=== PATIENT | female | born 1960 | race Caucasian/White ===

== ENCOUNTER → 2017-05-07 08:52 | Outpatient (CLI) | payer BC, SELFPAY ==
--- NOTE | 2017-05-07 08:55 | RAD_ITS ---
STUDY: X-RAY - LEFT KNEE REASON FOR EXAM: Female, 56 years old. Stiffness. TECHNIQUE: 4 view(s) of the knee. COMPARISON: None. FINDINGS: Normal visualized distal femur. Normal visualized proximal tibia and fibula. Normal proximal tibiofibular articulation. The patient is status post left total knee replacement. There is good alignment. Small joint effusion. RAD/Knee 4 or More Views IMPRESSION: Status post total knee replacement. There is good alignment. Small joint effusion. Electronically Signed: Gomez Gallagher MD at 13:06 EST Tel [phone], Service support ,
== END ==
PROVIDERS: Family Provider Family Medicine; PCP Family Medicine; Visit Provider Orthopaedic Surgery
DX: M25.662 Stiffness of left knee, not elsewhere classified (principal)
CPT/HCPCS: 73564

== ENCOUNTER 2017-09-07 23:27 | Emergency (ER) | payer BC, SELFPAY ==
--- NOTE | 2017-09-07 23:27 | DT_ITS ---
This patient was seen during an EMR downtime August 31, 2017 - September 07, 2017. This patient may have a combination of paper and electronic documentation or all paper documentation. All documentation is viewable within the e-chart portion of [employer] for each patient visit.
[2017-09-07 23:28] VITALS: BP 123/70; PULSE 75; RESP 16; TEMP 36.7; O2SAT 98; BMI 38.8
--- NOTE | 2017-09-08 00:02 | ED.VISSUMM ---
- ER Visit Summary Date of Service: 09/08/17 Chief Complaint: Right leg swelling History of Present Illness: The patient is a 56 F who states she was sitting watching TV tonight and noted to her right leg was swollen 1-1/2 times the size of her left leg. She denies any pain. Her father had a blood clot so she was concerned. She has had no recent travel. There is no clotting disorder in the family. She denies chest pain or shortness of breath. Physical Examination: Vital signs are unremarkable. Patient sitting upright in bed no acute distress. Heart is regular rate and rhythm. Lung sounds are clear. Abdomen is soft nontender. Lower extremity examination reveals minimal edema in the right leg both thigh and lower leg. She has no tenderness. There is no erythema. She has strong distal pulses. There is a well-healed surgical scar of the left anterior knee. Test Results: We do not have ultrasound available this time of night. Patient will be written for a outpatient order for an ultrasound tomorrow. I did measure circumference of her legs. Right distal thigh is 17-3/4 inches and left distal thigh is 18-3/4 inches. Right calf is 16-3/4 inches and left calf is 16-1/4 inches. Emergency Department Course and Treatment: Patient will be given a single dose of Lovenox tonight. She will return tomorrow for outpatient ultrasound. Treatment Plan: [] Disposition: Discharge Impression: Right leg edema This note was generated with [employer] dictation software. It may contain incorrect words, spelling, and punctuation that were not noted in review of the chart prior to signing ED Disposition - Plan for ED Patient: Chief Complaint: Lower Extremity Injury Referrals: Sarah Bar DO [Primary Care Provider] -
--- NOTE | 2017-09-08 00:06 | ED.DEP ---
ED Disposition - Plan for ED Patient: Disposition: Home or Assisted Living Chief Complaint: Lower Extremity Injury Instructions: ED Leg Swelling Unilateral Referrals: Sarah Bar DO [Primary Care Provider] - Additional Instructions: return tomorrow for outpatient ultrasound of the leg as discussed
[2017-09-08] MEDS: Enoxaparin 100 MG/ML Syringe 90 MG SC (00:29)
== END 2017-09-08 00:30 | disposition home or self-care (01) ==
PROVIDERS: Emergency Provider Emergency Medicine; Family Provider Family Medicine; PCP Family Medicine
DX: R60.0 Localized edema (principal); Z83.2 Family history of diseases of the blood and blood-forming organs and certain disorders involving the immune mechanism; Z79.899 Other long term (current) drug therapy
CPT/HCPCS: 96372; 99283

== ENCOUNTER → 2017-09-08 10:06 | Outpatient (CLI) | payer BC, SELFPAY ==
--- NOTE | 2017-09-08 10:08 | VDLE_ITS ---
Reason For Study: LEG SWELLING RIGHT LEFT GSV is normal. CFV is compressible, spontaneous, phasic, CFV is compressible, spontaneous, phasic, competent, and demonstrates normal competent and demonstrates normal augmentation. augmentation. FV is compressible, spontaneous, phasic, competent and demonstrates normal augmentation. POP V is compressible, spontaneous, phasic, competent and demonstrates normal augmentation. T/P Trunk is compressible. PTV is compressible. RT PerV is compressible. Procedure Exam performed in department. A preliminary report was called and/or faxed to Dr. Bar. Interpretation Summary Deep veins of the right lower extremity are patent and compressible segmentally. There is no evidence of right lower extremity deep vein thrombosis. Valvular competence appears intact within the proximal deep venous system on the right . The right greater saphenous vein appears patent and compressible segmentally. Ordering Physician: Beth Rea Referring Physician: Sarah Bar Performed By: Jennifer Song RVT
== END ==
PROVIDERS: Family Provider Family Medicine; PCP Family Medicine; Visit Provider Emergency Medicine
DX: R60.0 Localized edema (principal)
CPT/HCPCS: 93971

== ENCOUNTER → 2017-09-14 16:23 | Outpatient (CLI) | payer BC, SELFPAY ==
--- NOTE | 2017-09-14 16:35 | US_ITS ---
STUDY: ULTRASOUND OF THE PELVIS CLINICAL: Female, 56 years old. Edema, mass TECHNIQUE: Transvaginal COMPARISON: None. FINDINGS: Normal uterine size measuring 6.8 x 3.4 x 1.8 cm in maximal craniocaudal dimension. There are no myometrial masses. Normal endometrial thickness measuring 2 mm. It is hyperechoic. There are no endometrial masses, and there is no fluid in the endometrial cavity. Normal uterine cervix. Normal right ovary, measuring 1.3 x 1.6 x 0.8 cm. There are multiple follicles without a dominant cyst. Normal left ovary, measuring 1.7 x 1.3 x 1.0 cm. There are multiple follicles without a dominant cyst. 2 mm hyperechoic focus possibly a calcification. There is no free fluid in the pelvis. US/Pelvic (Non ) IMPRESSION: No acute pathology in the pelvis. Electronically Signed: Sukhjinder Murray DO at 23:13 EDT Tel [phone], Service support ,
--- NOTE | 2017-09-14 16:51 | US_ITS ---
STUDY: ULTRASOUND OF THE PELVIS CLINICAL: Female, 56 years old. Edema, mass TECHNIQUE: Transvaginal COMPARISON: None. FINDINGS: Normal uterine size measuring 6.8 x 3.4 x 1.8 cm in maximal craniocaudal dimension. There are no myometrial masses. Normal endometrial thickness measuring 2 mm. It is hyperechoic. There are no endometrial masses, and there is no fluid in the endometrial cavity. Normal uterine cervix. Normal right ovary, measuring 1.3 x 1.6 x 0.8 cm. There are multiple follicles without a dominant cyst. Normal left ovary, measuring 1.7 x 1.3 x 1.0 cm. There are multiple follicles without a dominant cyst. 2 mm hyperechoic focus possibly a calcification. There is no free fluid in the pelvis. US/Transvaginal Non- IMPRESSION: No acute pathology in the pelvis. Electronically Signed: Sukhjinder Murray DO at 23:13 EDT Tel [phone], Service support ,
== END ==
PROVIDERS: Family Provider Family Medicine; PCP Family Medicine; Visit Provider Family Medicine
DX: R60.0 Localized edema (principal)
CPT/HCPCS: 76830; 76856; 93976

== ENCOUNTER → 2017-09-28 08:04 | Outpatient (CLI) | payer BC, SELFPAY ==
--- NOTE | 2017-09-28 08:06 | RAD_ITS ---
STUDY: X-RAY - LEFT KNEE REASON FOR EXAM: Female, 56 years old. Pain, injury TECHNIQUE: 4 view(s) of the knee. COMPARISON: Previous study of May 07, 2017 FINDINGS: Status post total left knee replacement changes are seen. Implants appear in good position. There is no evidence of implant loosening or new associated fracture or dislocation. There is a small suprapatellar effusion. RAD/Knee 4 or More Views IMPRESSION: Status post total left knee replacement changes noted with implants appearing in good position. There is no evidence of implant loosening or new associated fracture or dislocation. There is a small suprapatellar effusion. Findings are similar to the previous study. Electronically Signed: Bradley Alfaro MD at 16:50 EDT , Service support ,
== END ==
PROVIDERS: Family Provider Family Medicine; PCP Family Medicine; Visit Provider Orthopaedic Surgery
DX: M25.562 Pain in left knee (principal)
CPT/HCPCS: 73564

== ENCOUNTER → 2017-10-22 08:39 | Outpatient (CLI) | payer BC, SELFPAY ==
[2017-10-22 10:25] LABS: Absolute Neutrophil Count 3.6 X10^3/uL (2.0-7.7); Basophil# 0.02 X10^3/uL; Basophil% 0.3 % (0-1); Eosinophil# 0.38 X10^3/uL; Eosinophils% 6.4 % (0-5); Hematocrit 34.8 % (37-47); Hemoglobin 12.2 g/dl (12.0-15.0); Lymphocyte % 25.3 % (19-41); Mean Corp Hgb Conc 35.1 g/gl (32-36); Mean Corpuscular Hgb 30.7 pg (27.0-32.0); Mean Corpuscular Volume 87.4 fL (81-99); Mean Platelet Vol. 10.2 fl (6.2-12.0); Monocyte# 0.46 X10^3/uL; Monocyte% 7.7 % (0-10); Neutrophil # 3.57 X10^3/uL (2.7-7.7); Neutrophil % 60.1 % (47-70); Platelet Count 266 K/mm3 (150-450); RBC Distribution Width CV 13.7 % (11.6-14.6); RBC Distribution Width SD 44.1 fl (35.1-43.9); Red Blood Count 3.98 M/mm3 (4.2-5.4); White Blood Count 5.9 K/mm3 (4.4-11.0)
[2017-10-22 10:26] LABS: POSITIVE COUNT NO; POSITIVE DIFFERENTIAL NO; POSITIVE MORPHOLOGY NO
[2017-10-22 10:52] LABS: ALB/GLOB Ratio 1.1 RATIO (0.9-2.4); AST(SGOT) 26 U/L (15-37); Alanine Aminotransfer ALT/SGPT 34 U/L (13-56); Albumin, Serum 3.7 g/dL (3.2-5.0); Alkaline Phosphatase 67 U/L (45-117); Anion Gap 9 (5-15); BUN 15 mg/dL (7-18); BUN/Creat Ratio 15.3 RATIO (10-20); Calcium,Total 8.8 mg/dL (8.5-10.1); Chloride 104 mmol/L (98-107); Cholesterol 157 mg/dL (200); Creatinine, Serum 0.98 mg/dL (0.55-1.02); EST Glomerular Filtration Rate 62 mL/min (>60); Est Glom Filt Rate - Afr Amer 76 mL/min (>60); Globulin 3.4 g/dL (2.2-4.2); Glucose 96 mg/dL (74-106); High Density Lipoprotein 59 mg/dL; Potassium 3.6 mmol/L (3.5-5.1); Protein, Total 7.1 g/dL (6.4-8.2); Sodium Level 140 mmol/L (136-145); Triglycerides 149 mg/dL; Very Low Density Lipoprotein 30 mg/dL (5-40)
== END ==
PROVIDERS: Family Provider Family Medicine; PCP Family Medicine; Visit Provider Family Medicine
DX: I10 Essential (primary) hypertension (principal); E78.5 Hyperlipidemia, unspecified
CPT/HCPCS: 36415; 80053; 80061; 85025

== ENCOUNTER → 2017-11-12 12:38 | Outpatient (CLI) | payer BC, SELFPAY | PROVIDERS: Family Provider Family Medicine; PCP Family Medicine; Visit Provider Family Medicine | DX: Z12.31 Encounter for screening mammogram for malignant neoplasm of breast (principal) | CPT/HCPCS: 77063; 77067 ==

== ENCOUNTER → 2017-12-29 11:33 | Outpatient (CLI) | payer BC, SELFPAY ==
--- NOTE | 2017-12-29 11:36 | RAD_ITS ---
STUDY: X-RAY CHEST REASON FOR EXAM: Female, 57 years old. Cough. TECHNIQUE: PA and lateral views of the chest. COMPARISON: None. FINDINGS: The lungs are clear and expanded. There is no demonstrated pleural abnormality. Normal size heart. Normal mediastinum and trace. Normal visualized pulmonary arteries. Normal visualized aortic arch and descending thoracic aorta. There are mild degenerative changes of the visualized thoracic spine. Normal visualized ribs, clavicles, and shoulders. There is no demonstrated abnormality of the visualized soft tissue structures of the upper abdomen. RAD/Chest PA and Lateral IMPRESSION: No acute cardiopulmonary disease. Electronically Signed: Montana Veras DO at 22:00 EDT Tel [phone], Service support ,
[2017-12-29 14:05] LABS: Absolute Lymphocyte Count 1.37 X10^3/ul (0.83-4.51); Absolute Neutrophil Count 3.4 X10^3/uL (2.0-7.7); Basophil# 0.01 X10^3/uL; Basophil% 0.2 % (0-1); Eosinophil# 0.42 X10^3/uL; Eosinophils% 7.4 % (0-5); Hematocrit 33.5 % (37-47); Hemoglobin 11.7 g/dl (12.0-15.0); Lymphocyte # 1.37 X10^3/ul (4.0); Mean Corp Hgb Conc 34.9 g/gl (32-36); Mean Corpuscular Hgb 30.4 pg (27.0-32.0); Mean Platelet Vol. 10.5 fl (6.2-12.0); Monocyte# 0.53 X10^3/uL; Monocyte% 9.3 % (0-10); Neutrophil # 3.37 X10^3/uL (2.7-7.7); Neutrophil % 58.9 % (47-70); Platelet Count 226 K/mm3 (150-450); RBC Distribution Width CV 14.3 % (11.6-14.6); Red Blood Count 3.85 M/mm3 (4.2-5.4); White Blood Count 5.7 K/mm3 (4.4-11.0)
[2017-12-29 14:07] LABS: POSITIVE COUNT NO; POSITIVE DIFFERENTIAL NO; POSITIVE MORPHOLOGY NO
== END ==
PROVIDERS: Family Provider Family Medicine; PCP Family Medicine; Referring Provider Family Medicine; Visit Provider Family Medicine
DX: R05 Cough (principal); R06.2 Wheezing; J30.9 Allergic rhinitis, unspecified
CPT/HCPCS: 36415; 71046; 85025; 87070; 87205

== ENCOUNTER → 2018-08-02 15:26 | Outpatient (CLI) | payer BC, SELFPAY ==
[2018-08-05 16:00] LABS: Rubeola IgG Ab > 300.0 AU/mL (Immune >29.9)
== END ==
PROVIDERS: Family Provider Family Medicine; PCP Family Medicine; Visit Provider Family Medicine
DX: J06.9 Acute upper respiratory infection, unspecified (principal); Z91.89 Other specified personal risk factors, not elsewhere classified
CPT/HCPCS: 36415; 86765; 87633

== ENCOUNTER → 2018-11-01 09:08 | Outpatient (CLI) | payer BC, SELFPAY ==
[2018-11-01 12:25] LABS: Absolute Lymphocyte Count 1.58 X10^3/uL (0.83-4.51); Basophil# 0.03 X10^3/uL; Basophil% 0.5 % (0-1); Eosinophil# 0.43 X10^3/uL; Eosinophils% 6.5 % (0-5); Hemoglobin 11.4 g/dL (12.0-15.0); Lymphocyte # 1.58 X10^3/ul (4.0); Mean Corp Hgb Conc 35.6 g/dL (32-36); Mean Corpuscular Hgb 31.8 pg (27.0-32.0); Mean Corpuscular Volume 89.1 fL (81-99); Mean Platelet Vol. 10.4 fl (6.2-12.0); Monocyte% 7.6 % (0-10); NRBC Flagged by Analyzer 0 % (0-5); Neutrophil # 4.03 X10^3/uL (2.7-7.7); Neutrophil % 61.1 % (47-70); Platelet Count 245 K/mm3 (150-450); RBC Distribution Width CV 12.9 % (11.6-14.6); RBC Distribution Width SD 42.5 fl (35.1-43.9); Red Blood Count 3.59 M/mm3 (4.2-5.4); White Blood Count 6.6 K/mm3 (4.4-11.0)
[2018-11-01 12:45] LABS: AST(SGOT) 34 U/L (15-37); Alanine Aminotransfer ALT/SGPT 43 U/L (13-56); Albumin, Serum 3.6 g/dL (3.2-5.0); Alkaline Phosphatase 78 U/L (45-117); Anion Gap 8 (5-15); BUN 28 mg/dL (7-18); BUN/Creat Ratio 20.6 RATIO (10-20); Chloride 104 mmol/L (98-107); Cholesterol 161 mg/dL (200); Creatinine, Serum 1.36 mg/dL (0.55-1.02); EST Glomerular Filtration Rate 43 mL/min (>60); Est Glom Filt Rate - Afr Amer 52 mL/min (>60); Globulin 3.5 g/dL (2.2-4.2); Glucose 97 mg/dL (74-106); High Density Lipoprotein 58 mg/dL; Potassium 3.6 mmol/L (3.5-5.1); Protein, Total 7.1 g/dL (6.4-8.2); Sodium Level 137 mmol/L (136-145); Triglycerides 153 mg/dL; Very Low Density Lipoprotein 31 mg/dL (5-40)
== END ==
PROVIDERS: Family Provider Family Medicine; PCP Family Medicine; Visit Provider Family Medicine
DX: I10 Essential (primary) hypertension (principal); E78.5 Hyperlipidemia, unspecified; D64.9 Anemia, unspecified
CPT/HCPCS: 36415; 80053; 80061; 85025

== ENCOUNTER → 2018-11-01 10:07 | Outpatient (CLI) | payer BC, SELFPAY ==
[2018-11-01 10:06] VITALS: BMI 38.8
--- NOTE | 2018-11-01 10:08 | RAD_ITS ---
STUDY: X-RAY - LEFT KNEE REASON FOR EXAM: Female, 57 years old. Post operative check TECHNIQUE: 4 view(s) of the knee. COMPARISON: None. FINDINGS: Normal visualized distal femur. Normal visualized proximal tibia and fibula. Normal proximal tibiofibular articulation. Normal medial femorotibial compartment. Normal lateral femorotibial compartment. Normal patellofemoral articulation. Knee replacement hardware is intact. Soft tissues are within normal limits. RAD/Knee 4 or More Views IMPRESSION: There are NO fractures or malalignments. Knee replacement hardware is intact. Electronically Signed: Brandan Song MD at 16:51 EDT , Service support ,
== END ==
PROVIDERS: Family Provider Family Medicine; PCP Family Medicine; Referring Provider Orthopaedic Surgery; Visit Provider Orthopaedic Surgery
DX: Z96.659 Presence of unspecified artificial knee joint (principal)
CPT/HCPCS: 73564

== ENCOUNTER → 2018-11-30 16:13 | Outpatient (CLI) | payer BC, SELFPAY ==
[2018-11-01 10:06] VITALS: BMI 38.8
--- NOTE | 2018-11-30 16:18 | BI_ITS ---
MAMMOGRAPHY - BILATERAL SCREENING REASON FOR EXAM: Female, 58 years old. Routine annual screening examination. PERTINENT HISTORY: Non-contributory. Remote right excisional breast biopsy. TECHNIQUE: Digital bilateral breast stuart (3D mammographic acquisition) in the CC and MLO projections. 2-D mediolateral oblique (MLO) and craniocaudad (CC) views of both breasts were obtained. CAD: Full Field Digital Mammography with Computer Added Detection was performed. COMPARISON: Comparison is made with prior study dated November 12, 2017. FINDINGS: Breast Composition: The breasts are almost entirely fatty. There are no dominant masses or suspicious calcifications. Stable benign-appearing small bilateral axillary lymph nodes. Prominent venous markings in both breasts. No other significant abnormalities are identified. There has been no significant change since the prior study. BI/SCREEN MAMM (CAD) W/STUART BILAT IMPRESSION: Stable bilateral screening mammogram. Yearly follow-up mammogram recommended. (A) ASSESSMENT CATEGORY: BIRADS Category 2: Benign. A letter regarding these results will be sent to the patient by the facility within 30 days. Approximately 10% of breast cancers are not detected by mammography. A normal mammogram should not delay biopsy of a clinically suspicious abnormality. [id number] Electronically Signed: Gomez Gallagher, at 9:27 EDT , Service support ,
== END ==
PROVIDERS: Family Provider Family Medicine; PCP Family Medicine; Referring Provider Family Medicine; Visit Provider Family Medicine
DX: Z12.31 Encounter for screening mammogram for malignant neoplasm of breast (principal)
CPT/HCPCS: 77063; 77067

== ENCOUNTER → 2018-12-30 13:28 | Outpatient (CLI) | payer BC, SELFPAY ==
[2018-11-01 10:06] VITALS: BMI 38.8
[2018-12-30 18:46] LABS: Anion Gap 6 (5-15); BUN 14 mg/dL (7-18); BUN/Creat Ratio 11.3 RATIO (10-20); Calcium,Total 8.9 mg/dL (8.5-10.1); Chloride 102 mmol/L (98-107); Creatinine, Serum 1.24 mg/dL (0.55-1.02); EST Glomerular Filtration Rate 48 mL/min (>60); Est Glom Filt Rate - Afr Amer 58 mL/min (>60); Glucose 81 mg/dL (74-106); Potassium 3.5 mmol/L (3.5-5.1); Sodium Level 135 mmol/L (136-145)
== END ==
LOC: LAB.FUTURE 07-04 00:12 → BFHLAB 08-24 10:46
PROVIDERS: Family Provider Family Medicine; PCP Family Medicine; Visit Provider Family Medicine
DX: R94.4 Abnormal results of kidney function studies (principal)
CPT/HCPCS: 36415; 80048

== ENCOUNTER → 2019-02-01 08:33 | Outpatient (CLI) | payer BC, SELFPAY ==
[2018-11-01 10:06] VITALS: BMI 38.8
[2019-02-01 12:34] LABS: Anion Gap 8 (5-15); BUN 15 mg/dL (7-18); BUN/Creat Ratio 14.9 RATIO (10-20); Calcium,Total 9.1 mg/dL (8.5-10.1); Chloride 103 mmol/L (98-107); Creatinine, Serum 1.01 mg/dL (0.55-1.02); EST Glomerular Filtration Rate 60 mL/min (>60); Est Glom Filt Rate - Afr Amer 73 mL/min (>60); Glucose 102 mg/dL (74-106); Potassium 3.4 mmol/L (3.5-5.1); Sodium Level 136 mmol/L (136-145)
[2019-02-02 08:18] LABS: Mucous, Urine 0 SEEN /hpf (<or=2+); Red Blood Cells-Urine 0 SEEN /hpf (0-5)
[2019-02-02 12:30] LABS: Color, Urine Yellow (Yellow); Glucose, Dipstick Normal (Normal); Ketone-Dipstick Negative (Negative); Leukocyte Esterase-Dipstick 25 /ul (Negative); Nitrite-Dipstick Negative (Negative); Occult Blood-Urine Negative /ul (Negative); Protein-Dipstick Negative (Negative); Specific Gravity, Urine 1.015 (1.002-1.030); Urine Bilirubin Dipstick Negative (Negative); Urine Clarity Sl. Cloudy (Clear); Urine Urobilinogen Normal (Normal)
[2019-02-02 12:34] LABS: Bacteria RARE /hpf (None Seen); Squamous Epithelial Cells - UA 0-5 SEEN /hpf (5-10); White Blood Cells 0-5 SEEN /hpf (0-5)
== END ==
LOC: LAB.FUTURE 08-04 00:15 → BFHLAB 08-24 10:45
PROVIDERS: Family Provider Family Medicine; PCP Family Medicine; Visit Provider Family Medicine
DX: N28.9 Disorder of kidney and ureter, unspecified (principal)
CPT/HCPCS: 36415; 80048; 81001

== ENCOUNTER → 2019-04-20 13:37 | Outpatient (CLI) | payer BC, SELFPAY ==
[2018-11-01 10:06] VITALS: BMI 38.8
--- NOTE | 2019-04-20 13:41 | RAD_ITS ---
STUDY: X-RAY - LUMBAR SPINE REASON FOR EXAM: Female, 58 years old. Lower back pain radiating into the left hip. TECHNIQUE: 5 view(s) of the lumbar spine were obtained. COMPARISON: None FINDINGS: Normal lumbar lordosis. There is no substantial scoliosis. There is a normal alignment of the vertebrae. There is multilevel endplate spondylosis of the lumbar vertebrae. There is multi-level degenerative disc disease with multi-level disc space narrowing. This is most marked at L1-2 and L2-3. There is no evidence of acute fracture or loss of vertebral axial height. There is no demonstrated spondylolysis of the pars interarticulares. Cholecystectomy clips in the right upper quadrant. RAD/L/S Spine Min 4 Views IMPRESSION: Degenerative changes of the spine, as detailed above. Electronically Signed: Montana Veras DO at 21:30 EST Tel [phone], Service support ,
== END ==
PROVIDERS: PCP Family Medicine; Referring Provider Family Medicine; Visit Provider Family Medicine
DX: M54.5 Low back pain (principal)
CPT/HCPCS: 72110

== ENCOUNTER → 2019-04-29 08:49 | Outpatient (CLI) | payer BC, SELFPAY ==
[2018-11-01 10:06] VITALS: BMI 38.8
[2019-04-29 13:21] LABS: Anion Gap 8 (5-15); BUN 14 mg/dL (7-18); BUN/Creat Ratio 13.7 RATIO (10-20); Calcium,Total 9.3 mg/dL (8.5-10.1); Chloride 102 mmol/L (98-107); Creatinine, Serum 1.02 mg/dL (0.55-1.02); EST Glomerular Filtration Rate 60 mL/min (>60); Est Glom Filt Rate - Afr Amer 72 mL/min (>60); Glucose 89 mg/dL (74-106); Potassium 3.3 mmol/L (3.5-5.1); Sodium Level 136 mmol/L (136-145)
== END ==
PROVIDERS: Family Provider Family Medicine; PCP Family Medicine; Visit Provider Family Medicine
DX: I10 Essential (primary) hypertension (principal); N28.9 Disorder of kidney and ureter, unspecified
CPT/HCPCS: 36415; 80048

== ENCOUNTER → 2019-08-26 12:53 | Outpatient (CLI) | payer BC, SELFPAY ==
[2018-11-01 10:06] VITALS: BMI 38.8
[2019-08-26 15:13] LABS: Absolute Lymphocyte Count 1.87 X10^3/uL (0.83-4.51); Basophil# 0.04 X10^3/uL; Basophil% 0.6 % (0-1); Eosinophils% 5.8 % (0-5); Hematocrit 35.8 % (37-47); Hemoglobin 12.6 g/dL (12.0-15.0); Lymphocyte # 1.87 X10^3/ul (4.0); Lymphocyte % 27.3 % (19-41); Mean Corp Hgb Conc 35.2 g/dL (32-36); Mean Corpuscular Hgb 31.1 pg (27.0-32.0); Mean Corpuscular Volume 88.4 fL (81-99); Mean Platelet Vol. 10.2 fl (6.2-12.0); Monocyte# 0.54 X10^3/uL; Monocyte% 7.9 % (0-10); NRBC Flagged by Analyzer 0 % (0-5); Neutrophil # 3.98 X10^3/uL (2.7-7.7); Neutrophil % 58.3 % (47-70); Platelet Count 334 K/mm3 (150-450); RBC Distribution Width CV 13.7 % (11.6-14.6); RBC Distribution Width SD 44.4 fl (35.1-43.9); Red Blood Count 4.05 M/mm3 (4.2-5.4); White Blood Count 6.8 K/mm3 (4.4-11.0)
[2019-08-26 15:29] LABS: ALB/GLOB Ratio 1.1 RATIO (0.9-2.4); AST(SGOT) 26 U/L (15-37); Alanine Aminotransfer ALT/SGPT 34 U/L (13-56); Albumin, Serum 3.8 g/dL (3.2-5.0); Alkaline Phosphatase 57 U/L (45-117); Anion Gap 9 (5-15); BUN 18 mg/dL (7-18); BUN/Creat Ratio 16.4 RATIO (10-20); Calcium,Total 9.3 mg/dL (8.5-10.1); Chloride 102 mmol/L (98-107); Cholesterol 162 mg/dL (200); EST Glomerular Filtration Rate 54 mL/min (>60); Est Glom Filt Rate - Afr Amer 66 mL/min (>60); Globulin 3.5 g/dL (2.2-4.2); Glucose 91 mg/dL (74-106); High Density Lipoprotein 64 mg/dL; Potassium 3.6 mmol/L (3.5-5.1); Protein, Total 7.3 g/dL (6.4-8.2); Sodium Level 137 mmol/L (136-145); Triglycerides 157 mg/dL; Very Low Density Lipoprotein 31 mg/dL (5-40)
== END ==
PROVIDERS: PCP Family Medicine; Visit Provider Family Medicine
DX: E87.5 Hyperkalemia (principal); E87.6 Hypokalemia; Z51.81 Encounter for therapeutic drug level monitoring
CPT/HCPCS: 36415; 80053; 80061; 85025

== ENCOUNTER → 2019-12-09 14:56 | Outpatient (CLI) | payer BC, SELFPAY ==
[2018-11-01 10:06] VITALS: BMI 38.8
[2019-12-09 12:57] LABS: Absolute Lymphocyte Count 1.67 X10^3/uL (0.83-4.51); Absolute Neutrophil Count 3.9 X10^3/uL (2.0-7.7); Basophil# 0.03 X10^3/uL; Basophil% 0.5 % (0-1); Eosinophil# 0.41 X10^3/uL; Eosinophils% 6.3 % (0-5); Hematocrit 35.2 % (37-47); Hemoglobin 12.4 g/dL (12.0-15.0); Lymphocyte # 1.67 X10^3/ul (4.0); Lymphocyte % 25.6 % (19-41); Mean Corp Hgb Conc 35.2 g/dL (32-36); Mean Corpuscular Hgb 31.8 pg (27.0-32.0); Mean Corpuscular Volume 90.3 fL (81-99); Mean Platelet Vol. 10.5 fl (6.2-12.0); Monocyte% 7.7 % (0-10); NRBC Flagged by Analyzer 0 % (0-5); Neutrophil % 59.7 % (47-70); Platelet Count 302 K/mm3 (150-450); RBC Distribution Width CV 13.3 % (11.6-14.6); White Blood Count 6.5 K/mm3 (4.4-11.0)
[2019-12-09 13:28] LABS: ALB/GLOB Ratio 1.1 RATIO (0.9-2.4); AST(SGOT) 20 U/L (15-37); Alanine Aminotransfer ALT/SGPT 31 U/L (13-56); Albumin, Serum 3.6 g/dL (3.2-5.0); Alkaline Phosphatase 61 U/L (45-117); Anion Gap 8 (5-15); BUN 16 mg/dL (7-18); Calcium,Total 8.7 mg/dL (8.5-10.1); Chloride 104 mmol/L (98-107); EST Glomerular Filtration Rate 61 mL/min (>60); Est Glom Filt Rate - Afr Amer 74 mL/min (>60); Globulin 3.2 g/dL (2.2-4.2); Glucose 97 mg/dL (74-106); Potassium 3.5 mmol/L (3.5-5.1); Protein, Total 6.8 g/dL (6.4-8.2); Sodium Level 139 mmol/L (136-145)
--- NOTE | 2019-12-09 15:02 | BI_ITS ---
MAMMOGRAPHY - BILATERAL SCREENING REASON FOR EXAM: Female, 59 years old. Routine annual screening examination. PERTINENT HISTORY: Non-contributory. Remote right excisional breast biopsy. TECHNIQUE: Digital bilateral breast stuart (3D mammographic acquisition) in the CC and MLO projections. 2-D mediolateral oblique (MLO) and craniocaudad (CC) views of both breasts were obtained. CAD: Full Field Digital Mammography with Computer Added Detection was performed. COMPARISON: Comparison is made with prior study dated 11/30/2018 and 11/12/2017. FINDINGS: Breast Composition: The breasts are almost entirely fatty. There are no dominant masses or suspicious calcifications. Stable benign appearing bilateral axillary lymph nodes. No other significant abnormalities are identified. There has been no significant change since the prior study. BI/SCREEN MAMM (CAD) W/STUART BILAT IMPRESSION: Stable bilateral screening mammogram. Yearly follow-up mammogram recommended. (A) ASSESSMENT CATEGORY: BIRADS Category 2: Benign. A letter regarding these results will be sent to the patient by the facility within 30 days. Approximately 10% of breast cancers are not detected by mammography. A normal mammogram should not delay biopsy of a clinically suspicious abnormality. [id number] Electronically Signed: Gomez Gallagher, at 9:46 EDT , Service support ,
== END ==
PROVIDERS: PCP Family Medicine; Referring Provider Family Medicine; Visit Provider Family Medicine
DX: Z12.31 Encounter for screening mammogram for malignant neoplasm of breast (principal); N18.9 Chronic kidney disease, unspecified; D64.9 Anemia, unspecified
CPT/HCPCS: 36415; 77063; 77067; 80053; 85025

== ENCOUNTER 2020-05-18 06:02 | Day surgery (SDC) | payer BC, SELFPAY ==
[2019-12-27 13:01] VITALS: BMI 38.8
[2020-05-18] VITALS (8 sets, daily range): BP systolic 94–114; BP diastolic 49–73; PULSE 71–81; RESP 16–18; TEMP 36.3–36.5; O2SAT 94–100; BMI 40.6
--- NOTE | 2020-05-18 06:07 | HP_ITS ---
I have re-examined the patient. There are no clinical changes since date of exam. Intake Intake Visit Reasons: LEFT WRIST Accompanied by: Self Is patient in pain?: Yes Pain scale (1-10): 5 Allergies adhesive tape Allergy (Verified 05/10/20 15:42) Rash latex Allergy (Verified 05/10/20 15:42) Rash Penicillins [PCN] Allergy (Verified 05/10/20 15:42) Other Sulfa (Sulfonamide Antibiotics) Allergy (Verified 05/10/20 15:42) Rash erythromycin base Adverse Reaction (Verified 05/10/20 15:42) Upset Stomach PLASTIC TAPE Allergy (Uncoded 05/10/20 15:42) Rash Medications Lisinopril/Hydrochlorothiazide [Zestoretic 20-25 mg Tablet] 1 ea PO DAILY 02/23/16 [History Confirmed 05/10/20] Pantoprazole Sodium [Protonix] 40 mg PO DAILY 02/23/16 [History Confirmed 05/10/20] Cholecalciferol (Vitamin D3) [Vitamin D3] 5,000 unit PO DAILY 08/22/16 [History Confirmed 05/10/20] Fluoxetine [Prozac] 60 mg PO DAILY 08/22/16 [History Confirmed 05/10/20] Cetirizine HCl [Zyrtec] 10 mg PO DAILY 10/21/16 [History Confirmed 05/10/20] rosuvastatin 40 mg tablet 20 mg PO QHS tab 05/07/17 [History Confirmed 05/10/20] cyclobenzaprine 5 mg tablet ea PO 12/27/19 [History Confirmed 05/10/20] duloxetine 20 mg capsule,delayed release mg PO 12/27/19 [History Confirmed 05/10/20] oxaprozin 600 mg tablet PO 12/27/19 [History Confirmed 05/10/20] potassium chloride 10 mEq capsule,extended release meq PO 12/27/19 [History Confirmed 05/10/20] ferrous sulfate 325 mg (65 mg iron) tablet 325 mg PO DAILY 05/10/20 [History Confirmed 05/10/20] [facility] Medical History (Updated 03/13/20 @ 15:07 by Frances Oropeza) GERD (gastroesophageal reflux disease) (Acute) Hyperlipemia (Acute) Migraine (Acute) Sleep apnea (Acute) Hypertension (Chronic) Surgical History (Updated 03/05/17 @ 08:45 by Umu Fernandes) S/P left unicompartmental knee replacement (Acute) S/P surgical manipulation of knee joint (Acute) H/O dilation and curettage (Inactive) History of lumpectomy of right breast (Inactive) Hx of cholecystectomy (Inactive) bilateral knee (Inactive) right knee (Inactive) Family History Father Hypertension CVA (cerebral vascular accident) Melanoma Mother Sudden cardiac Social History (Updated 05/11/20 @ 09:[address] Anastasiya Roldan DO) Smoking Status: Never smoker HPI LEFT WRIST: Details: Parts of this documentation were recorded by a scribe, this documentation accurately reflects the service provided and the decisions made by me, Dr. Anastasiya Roldan DO 05/10/20 1532. CHRISTIAN LANZA is a 59 year old F here today for left wrist pain. Last Right CMC injection was: 03/13/2020. Last Left CMC injection was 12/27/2019. Patient states the injection for her right CMC has provided relief and still has some relief from it. Patient's last x-rays of bilateral hands were 12/27/2019. Patient states she would like to receive an injection for her left CMC and would like to discuss surgery for bilateral carpal tunnel release. Reports pain, numbness and tingling with her left hand. Denies wrist pain. Patient voiced her fitness assistant strength and gasp has lessened. Pain was aggravated with the last snow storm we had while using a oss architect. Last bilateral EMG study was: 06/05/2015. ROS Musc Reports system reviewed and no additional complaints, except as docu, Reports joint pain, Reports numbness, Reports stiffness, Reports tingling Neuro Yes numbness, Yes tingling Ortho Exam Right Wrist/Hand Right Wrist: Yes ROM-Extension 0-60, ROM-Flexion 0-80, ROM-Pronation 0-80, ROM- Supination 0-90, TTP Fracture site and CMC Grind Motor: EPL: 5, FDP-2: 4, 1st Dorsal Interosseous: 5, APB: 4 Sensation: Radial: I, Ulnar: I, Median: D Left Wrist/Hand Left Wrist: Yes ROM-Extension 0-60, Yes ROM-Flexion 0-80, Yes ROM-Pronation 0- 80, Yes ROM-Supination 0-90 and Yes CMC Grind Motor: EPL: 5, FDP-2: 4, 1st Dorsal Interosseous: 5, APB: 4 Sensation: Radial: I, Ulnar: I, Median: D Assessment & Plan Problems 1. Carpal tunnel syndrome of left wrist G56.02 Plan Explained if patient wants surgical intervention, we can do a carpal tunnel release with her left and give an injection during that time. Explained carpal tunnel release is to prevent patient from getting worse. May or may not regain some strength after her procedure. Explained it is a small incision, procedure is 5-6 minutes. Patient will have to keep her incision clean and dry for two weeks post-op. Reviewed the pre-operative plans with the patient. Risks and benefits of the procedure were fully explained, including but not limited to infection, neurovascular injury, continued pain, arthritis, stiffness, need for further surgery, re-injury, DVT, PE, general risks of anesthesia, and loss of limb or life. The patient understands all the risks and does wish to proceed with written consent. All questions answered. Patient in agreement of plan. Follow up post-op or sooner if pain, swelling, numbness or associated symptoms, or concerns develop. Plan Detail Follow Up post-op Coding Level of Care Code Off vis,est,level 4 Diagnoses Carpal tunnel syndrome of left wrist G56.02 COVID (Procedure Consent) Procedure Criteria Procedure Criteria: Yes Elective The surgeon/proceduralist and patient have discussed in detail the risk of exposure to and/or potential harm posed by the COVID-19 virus with having a surgery/procedure at this time versus the risk of? delaying the surgery/procedure. It is not possible to know either the risk of delaying the surgery or procedure or chance of getting an infection with perfect accuracy, but a joint decision was made between the patient and the surgeon/proceduralist ?to proceed at this time with the scheduled surgery/procedure as indicated on the consent form.
[2020-05-18] MEDS: Lactated Ringers 1,000 ML 100 ML IV (06:35)
[2020-05-18] MEDS: Cefazolin 2 GM in 0.9% Normal Saline 100 ML IV (07:26)
[2020-05-18] MEDS: Lidocaine 1% (20 ml mdv) 20 ML Vial (08:09)
[2020-05-18] MEDS: Mupirocin Ointment 22gm Tube 1 APPLIC (08:19)
--- NOTE | 2020-05-18 08:30 | PCM.DC.ORTHO ---
Discharge Diet: No Restrictions - leave dressing on until seen in postop clinic in 10-14 days for suture removal, keep dressing clean, dry, intact; change dressing if gets wet/dirty, call with concerns Discharge Activity: May Not Drive May shower in (days): 1 Ice area for (Minutes): 20 - Every hour while awake. Weight Bearing Status: Weight bearing as tolerated Keep extremity elevated above heart level: Operative Extremity Call your doctor if your incision/area has: Continuous Slow Oozing, Sudden Increased Bleeding, Increased Pain/ Swelling, Increased Redness, Foul Smelling Discharge Call your doctor if you observe: Fever of 101 or Higher, Coldness, Increased Pain, Numbness or Tingling, Change in Color, Calf discomfort Allergies/Adverse Reactions: Allergies adhesive tape Allergy (Verified 05/18/20 06:44) Rash latex Allergy (Verified 05/18/20 06:44) Rash Penicillins [PCN] Allergy (Verified 05/18/20 06:44) Other TOLD A CHILD TO AVOID Sulfa (Sulfonamide Antibiotics) Allergy (Verified 05/18/20 06:44) Rash erythromycin base Adverse Reaction (Verified 05/18/20 06:44) Upset Stomach PLASTIC TAPE Allergy (Uncoded 05/18/20 06:44) Rash Medications to take at Discharge Lisinopril/Hydrochlorothiazide [Zestoretic 20-25 mg Tablet] 1 ea PO DAILY 02/23/16 Pantoprazole Sodium [Protonix] 40 mg PO DAILY 02/23/16 Cholecalciferol (Vitamin D3) [Vitamin D3] 5,000 unit PO DAILY 08/22/16 Fluoxetine [Prozac] 60 mg PO DAILY 08/22/16 Cetirizine HCl [Zyrtec] 10 mg PO DAILY 10/21/16 rosuvastatin 40 mg tablet 20 mg PO QHS tab 05/07/17 cyclobenzaprine 5 mg tablet 5 ea PO PRN PRN 12/27/19 duloxetine 20 mg capsule,delayed release 20 mg PO DAILY 12/27/19 oxaprozin 600 mg tablet 600 mg PO DAILY 12/27/19 potassium chloride 10 mEq capsule,extended release 10 meq PO DAILY 12/27/19 ferrous sulfate 325 mg (65 mg iron) tablet 325 mg PO DAILY 05/10/20 Hydrocodone Bitart/Apap 5-325 [Divide 5MG-325MG] 1 - 2 tab PO Q6H PRN PRN 5 Days #20 tab 05/18/20 The following prescriptions were given: Hydrocodone Bitart/Apap 5-325 [Divide 5MG-325MG] 1 - 2 tab PO Q6H PRN PRN 5 Days #20 tab PRN Reason: Pain Transmission Status: Sent to [facility] Primary Care Physician: Sarah Bar DO [Primary Care Provider] - Test Results: Test results from this visit will be discussed in further detail at your follow-up appointment, if applicable. Please Follow Up With: Anastasiya Roldan DO - [phone]
--- NOTE | 2020-05-18 08:31 | OP.PCM_ITS ---
Report of Operation Date of Procedure: 05/18/20 Pre-Operative Diagnosis: left carpal tunnel syndrome Post-Operative Diagnosis: same Surgery/Procedure Performed:: left carpal tunnel release Type of Anesthesia:: Ana,Tyrese, Local Anesthesiologist: Idris Weiner Estimated Blood Loss (mL): min Fluids Replaced: 600cc Description of Procedure: Preoperative note Patient is a { 59 } patient with nerve conduction study confirming carpal tunnel syndrome. Patient failed conservative treatment for her carpal tunnel elected proceed with left carpal tunnel release. Risks benefits and alternatives surgery discussed with patient. Risks including but not limited to blood loss, blood clot, infection, neurovascular injury, failure procedure, loss of life and loss of limb. Patient is aware like proceed with left carpal tunnel release. We discussed the current risk associated COVID-19. While it is understood that there is a community spread of COVID 19 the risk of arabella COVID-19 while at [facility] is very low, however, the risk cannot be completely mitigated because of the community spread of the disease. We discuss ed in detail the risk of exposure to and or potential harm posed by the COVID-19 virus with having a surgery/procedure at this time versus the risk of delaying the surgery/procedure. Is not possible to know either the risk of delaying the surgery procedure or chance of getting an infection with perfect accuracy, but a joint decision was made to proceed at this time with a schedule surgery/procedu re as indicated on the consent form. Patient was notified that we will need to comply with any screening or testing [facility] wishes to perform or that surgery may be delayed for any positive results. Operative note Patient seen and examined preoperative holding area. Left hand was marked. History and physical and consent reviewed. Patient was brought to the operating room placed supine on the operating table. Sign in, anesthesia, antibiotics were administered. Left upper extremity was prepped and draped after Lobeco block was initiated. All bony prominences well-padded SCDs placed on bilateral lower extremities. We marked out our incisions for our carpal tunnel release at the intersection of Jackie's line in the fourth ray flexed. We extended about a centimeter and a half. Timeout was performed. We then checked ensure that the Lobeco block was working with pickups which it was. We then used a 15 blade to make a skin incision. We then dissected down tenotomy syllable of the transverse carpal ligament. We then used a new 15 blade cut through the transverse carpal ligament down to the level of the median nerve. We then further released the median nerve the combination of the 15 blade and tenotomies. The nerve was grayish in color and adherent to the transverse carpal ligament volarly. We released the transverse carpal ligament distally to the fat pad and then proximally under standard technique. We then palpated to ensure that we released all of the transverse carpal ligament which we did. We irrigated the incision with copious amounts of sterile saline. All bleeders were coagulated. The incision was closed with interrupted 4-0 nylon stitches. Tourniquet was deflated. Patient tolerated procedure well there were no complications. Patient transferred to recovery room in stable condition. Postoperative note Hospital pharmacy has prescription Leave dressing clean dry and intact Follow-up in 2 weeks Call with concerns
== END 2020-05-18 09:40 | disposition home or self-care (01) ==
LOC: SDC 06:02 → AC 06:03
PROVIDERS: PCP Family Medicine; Referring Provider Orthopaedic Surgery; Visit Provider Orthopaedic Surgery
PROC: (CPT 64721; principal; 2020-05-18 07:15)
DX: G56.02 Carpal tunnel syndrome, left upper limb (principal); Z20.822 Contact with and (suspected) exposure to COVID-19; I10 Essential (primary) hypertension; E78.00 Pure hypercholesterolemia, unspecified; K21.9 Gastro-esophageal reflux disease without esophagitis; G47.30 Sleep apnea, unspecified; Z79.899 Other long term (current) drug therapy; Z78.0 Asymptomatic menopausal state
CPT/HCPCS: 64721; 87426; C9803; J7120; A4216; J2405

== ENCOUNTER 2020-06-12 14:48 | Outpatient (RCR) | payer BC, OTHER, SELFPAY ==
[2020-06-12] MEDS: COVID-19 VACC, MRNA(PFIZER)/PF 30 MCG/0.3 ML SYRINGE IM (12:50)
[2020-07-03] MEDS: COVID-19 VACC, MRNA(PFIZER)/PF 30 MCG/0.3 ML SYRINGE IM (12:34)
== END 2020-06-25 23:59 ==
LOC: IMMUN 14:48
PROVIDERS: PCP Family Medicine; Visit Provider Family Medicine
DX: Z23 Encounter for immunization (principal)
CPT/HCPCS: 0001A; 0002A; 91300

== ENCOUNTER → 2020-12-31 15:53 | Outpatient (CLI) | payer OTHER, SELFPAY ==
--- NOTE | 2020-12-31 15:56 | BI_ITS ---
MAMMOGRAPHY - BILATERAL SCREENING 3-D TOMOSYNTHESIS REASON FOR EXAM: Female, 60 years old. SCREENING PERTINENT HISTORY: No significant family history. TECHNIQUE: 2-D mammograms and 3-D Tomosynthesis of the breast (s) were performed. CAD was performed. COMPARISON: 12/09/2019 FINDINGS: The breast composition is composed of scattered fibroglandular density. Scattered benign calcifications are seen. No dense spiculated masses or suspicious microcalcifications are identified. No architectural distortion is identified. There is no skin thickening or retraction. There has been no significant change since the prior study. BI/SCRN MAMM (CAD)W/STUART BILAT IMPRESSION: No mammographic signs of malignancy. Routine yearly mammograms recommended. ASSESSMENT CATEGORY: BIRADS Category 1: Negative. A letter regarding these results will be sent to the patient by the facility within 30 days. FOLLOW UP RECOMMENDATION: Yearly follow up mammogram recommended. (A) Approximately 10% of breast cancers are not detected by mammography. A normal mammogram should not delay biopsy of a clinically suspicious abnormality. Electronically Signed: Toñito Newman MD at 18:18 EDT Tel , Service support ,
== END ==
PROVIDERS: PCP Family Medicine; Visit Provider Family Medicine
DX: Z12.31 Encounter for screening mammogram for malignant neoplasm of breast (principal)
CPT/HCPCS: 77063; 77067

== ENCOUNTER → 2021-01-15 | Outpatient (CLI) | payer OTHER, SELFPAY | END | disposition home or self-care (01) | LOC: LABSPEC 10:15 | PROVIDERS: PCP Family Medicine; Referring Provider Physician Assistant Surgical; Visit Provider Physician Assistant Surgical | DX: Z11.52 Encounter for screening for COVID-19 (principal) | CPT/HCPCS: 87635; U0005; U0003 ==

== ENCOUNTER → 2022-02-19 | Outpatient (CLI) | payer OTHER, SELFPAY ==
--- NOTE | 2022-02-19 13:08 | BI_ITS ---
MAMMOGRAPHY - BILATERAL SCREENING REASON FOR EXAM: Female, 61 years old. Routine annual screening examination. PERTINENT HISTORY: Right excisional biopsy at age 37. No personal or family history of breast cancer. Reported bruise in the left breast at the 9 o''clock position. TECHNIQUE: Digital bilateral breast stuart (3D mammographic acquisition) in the CC and MLO projections. 2-D mediolateral oblique (MLO) and craniocaudad (CC) views of both breasts were obtained. CAD: Full Field Digital Mammography with Computer Added Detection was performed. COMPARISON: 12/31/2020, 12/09/2019. FINDINGS: Breast Composition: There are scattered areas of fibroglandular density. There are no dominant masses or suspicious calcifications. No other significant abnormalities are identified. There has been no significant change since the prior study. BI/SCRN MAMM (CAD)W/STUART BILAT IMPRESSION: Stable bilateral screening mammogram. Yearly follow-up mammogram recommended. (A) ASSESSMENT CATEGORY: BIRADS Category 1: Negative. A letter regarding these results will be sent to the patient by the facility within 30 days. Approximately 10% of breast cancers are not detected by mammography. A normal mammogram should not delay biopsy of a clinically suspicious abnormality. Electronically Signed: Naldo Bucio, at 8:42 EST ,
== END | disposition home or self-care (01) ==
LOC: OPBI 13:06
PROVIDERS: PCP Family Medicine; Visit Provider Family Medicine
DX: Z12.31 Encounter for screening mammogram for malignant neoplasm of breast (principal)
CPT/HCPCS: 77063; 77067

== ENCOUNTER → 2022-02-19 | Outpatient (CLI) | payer OTHER, SELFPAY ==
[2022-02-19 15:30] LABS: Absolute Lymphocyte Count 1.53 X10^3/uL (0.83-4.51); Absolute Neutrophil Count 3.7 X10^3/uL (2.0-7.7); Basophil# 0.03 X10^3/uL; Basophil% 0.5 % (0-1); Eosinophil# 0.44 X10^3/uL; Hematocrit 35.3 % (37-47); Hemoglobin 12.4 g/dL (12.0-15.0); Lymphocyte # 1.53 X10^3/ul (0.83-4.51); Lymphocyte % 24.4 % (19-41); Mean Corp Hgb Conc 35.1 g/dL (32-36); Mean Corpuscular Hgb 31.3 pg (27.0-32.0); Mean Corpuscular Volume 89.1 fL (81-99); Mean Platelet Vol. 10.9 fl (6.2-12.0); Monocyte# 0.51 X10^3/uL; Monocyte% 8.1 % (0-10); NRBC Flagged by Analyzer 0 % (0-5); Neutrophil # 3.74 X10^3/uL (2.7-7.7); Neutrophil % 59.8 % (47-70); Platelet Count 279 K/mm3 (150-450); RBC Distribution Width CV 14.4 % (11.6-14.6); RBC Distribution Width SD 46.2 fl (35.1-43.9); Red Blood Count 3.96 M/mm3 (4.2-5.4); White Blood Count 6.3 K/mm3 (4.4-11.0)
[2022-02-19 15:45] LABS: ALB/GLOB Ratio 1.1 RATIO (0.9-2.4); AST(SGOT) 22 U/L (15-37); Alanine Aminotransfer ALT/SGPT 31 U/L (13-56); Albumin, Serum 3.6 g/dL (3.2-5.0); Alkaline Phosphatase 56 U/L (45-117); Anion Gap 7 (5-15); BUN 14 mg/dL (7-18); BUN/Creat Ratio 13.5 RATIO (10-20); Calcium,Total 9.2 mg/dL (8.5-10.1); Chloride 104 mmol/L (98-107); Cholesterol 159 mg/dL (200); Creatinine, Serum 1.04 mg/dL (0.55-1.02); EST Glomerular Filtration Rate 58 mL/min (>60); Est Glom Filt Rate - Afr Amer 70 mL/min (>60); Globulin 3.4 g/dL (2.2-4.2); Glucose 107 mg/dL (74-106); High Density Lipoprotein 69 mg/dL; Potassium 3.5 mmol/L (3.5-5.1); Sodium Level 139 mmol/L (136-145); Triglycerides 116 mg/dL; Very Low Density Lipoprotein 23 mg/dL (5-40)
== END | disposition home or self-care (01) ==
LOC: BFHLAB 13:45
PROVIDERS: PCP Family Medicine; Visit Provider Family Medicine
DX: E78.5 Hyperlipidemia, unspecified (principal); Z51.81 Encounter for therapeutic drug level monitoring
CPT/HCPCS: 36415; 80053; 80061; 85025

== ENCOUNTER → 2022-06-26 | Outpatient (CLI) | payer OTHER, SELFPAY ==
--- NOTE | 2022-06-26 14:50 | RAD_ITS ---
STUDY: X-RAY - RIGHT FOOT CLINICAL: Female, 61 years old. Pain. TECHNIQUE: 3 view(s) of the foot. COMPARISON: None. FINDINGS: Mild osteopenia. Inferior calcaneal spur. Mild arthrosis of the tibiotalar and subtalar joints. Mild arthrosis of the midfoot. Mild arthrosis of the TMT joints. Moderate arthrosis at the MTP and IP joints with hammertoe deformities. Normal soft tissues. RAD/Foot min 3 Views IMPRESSION: Osteopenia with osteoarthritic changes as described. Inferior calcaneal spur. No acute abnormality or erosive changes. Electronically Signed: Thierry Bolden, at 11:54 EDT ,
== END | disposition home or self-care (01) ==
LOC: MTRAD 14:48
PROVIDERS: PCP Family Medicine; Referring Provider Family Medicine; Visit Provider Family Medicine
DX: M79.671 Pain in right foot (principal); M67.471 Ganglion, right ankle and foot
CPT/HCPCS: 73630

== ENCOUNTER 2023-01-19 18:00 | Outpatient (RCR) | payer OTHER, SELFPAY ==
--- NOTE | 2022-12-08 13:57 | HP.PTEVAL ---
Patient's Visit Information Visit Information Visit Information: CHRISTIAN LANZA is a 62 year old F referred to Physical Therapy by Dr. Moose Umana DO with a diagnosis of IMPINGEMENT SYNDROME OF SHOULDER. Date of Evaluation: 12/08/22 Physical Therapist: Agusto Rodriguez, PT, Cert MDT, OCS Visit Plan Frequency: 2x /Week Duration: 4 Weeks Plan: PT INTERVTIONS ROM ,STRENGTHENING RTC/SCAPULAR ,POSTURAL EX'S AND MANUAL THERAPY Subjective Subjective: This 62 y/o female presents to physical therapy with right shoulder pain. Patient pain has been present past intermittent and worsening past several weeks. Seen Dr. family SANF[place] tried injection 6 weeks ago pain return then referred to DR Umana did x-rays -.Patient did another cortisone injection posterior shoulder. Patient has had no injury or trauma. Patient pain located global shoulder. Aggravating lifting OH ,reaching ,ADLS above 90 degrees and affecting housework tasks and job demands. Alleviating factors rest . Patient had no medication. Patient has ache and spasms. Denies paresthesia/tingling. Patient sleeping okay. Patient pain affects QOL and function. Patient goals to decrease pain. 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 Pain Right Shoulder: Pain Intensity (Out of 10): 3 Pain Intensity Range: 10 Objective Objective: POSTURE: rounded shoulders head forward PALAPTION: unremarkable NEURO: denies paresthesia/tingling AROM: shoulder flexion 140 pain ,abduction 130 pain ,ER 70 degrees , unable PROM: shoulder flexion/abduction 170 degrees ,ER 90 degrees MMT: RTC 4/5 ,Deltoid 4-/5 Special Tests R Shoulder Drop Sign - IS Test: Negative R Shoulder Empty Can - SS: Negative R Shoulder Neer - Impingement: Positive R Shoulder Arreguin López - Impingement: Positive R Shoulder Biceps Load Test - Labrum: Negative R Shoulder Shrug Sign - OA/Adhesive Capsulitis: Positive Balance/Special Test Scores Quick DASH Score: 45.0000 Goals Goal 1:: Patient to be I with HEP Goal Time Frame: 4-6 Weeks Goal 2:: Patient to demonstrate 75% improvement to improve function and ADLS with less pain Goal Time Frame: 4-6 Weeks Goal 3:: Patient to improve AROM 150 degrees shoulder flexion/abduction and IR L1 for ADLS and housework tasks Goal Time Frame: 4-6 Weeks Goal 4:: Patient to quick dash by 5 points or> to improve ADLS and function Goal Time Frame: 4-6 Weeks Goal 5:: Patient be able to lift OH for ADLS and housework tasks Goal Time Frame: 4-6 Weeks Rehabilitation Potential Physical Therapy Diagnosis: Patient appears to have RTC tendinopathy ,along with capsular tightness with pain , decrease ROM impairs ADLS and housework tasks thus will benefit from skilled PT Rehabilitation Potential: Good Anticipated Interventions Patient/Client Instruction: Educate patient on: Condition and Plan of Care For the Purpose of:: To decrease pain, To increase ROM, To improve muscle performance and motor function, To improve ability to perform ADL's, To increase tolerance to activity/condition/position, To improve ability of physical actions for home/community/work/leisure, To improve health of tissue, To decrease soft tissue restriction, To increase flexibility/ROM and To prevent re-injury Therapeutic Exercise to Include: Strength training, Postural training, Flexibilty training, Active ROM and Scapular Strength/Stabilization Comment: RTC For the Purpose of:: To decrease pain, To increase ROM, To improve muscle performance and motor function, To improve ability to perform ADL's, To increase tolerance to activity/condition/position, To improve ability of physical actions for home/community/work/leisure, To improve health of tissue, To decrease soft tissue restriction and To increase flexibility/ROM TENS: Yes IF ES: Yes Cryotherapy (ice pack, ice massage): Yes Thermo therapy (hot pack): Yes Ultrasound (thermal/non thermal): Yes For the Purpose of:: To decrease pain, To improve nutrient delivery to tissue, To improve health of tissue and To decrease soft tissue restriction Text: Thank you for the opportunity to evaluate your patient. For Medicare and Medicare HMO plans, please review the plan of care and approve it. It will need to be FAXED BACK to us at [phone] for Medicare purposes. For Medicare only, by signing this I certify the plan of care. Please let me know if there are questions or concerns regarding this plan of care. Physician Signature: Date:
--- NOTE | 2023-01-19 18:38 | HP.PTDCSUM ---
Discharge Summary D/C summary: It has been my pleasure to treat CHRISTIAN LANZA referred by Dr. Moose Umana DO, with the diagnosis of IMPINGEMENT SYNDROME OF SHOULDER for a total of 9 visit(s). Discharge Date: 01/19/23 Please see the following information for a summary of their discharge status. Subjective Subjective: Patient doing well ready for d/c Pain Right Shoulder: Pain Intensity (Out of 10): 0 Overall Improvement % Improvement: 75 Objective Objective/Function: AROM: shoulder flexion/abduction 180 degrees ,ER 90 degrees MMT: RTC /DELTOID 4/5 Goals Goal 1:: Patient to be I with HEP Goal Progress: Goal Met Goal 2:: Patient to demonstrate 75% improvement to improve function and ADLS with less pain Goal Progress: Goal Met Goal 3:: Patient to improve AROM 150 degrees shoulder flexion/abduction and IR L1 for ADLS and housework tasks Goal Progress: Goal Met Goal 4:: Patient to quick dash by 5 points or> to improve ADLS and function Goal Progress: Goal Met Goal 5:: Patient be able to lift OH for ADLS and housework tasks Goal Progress: Goal Met Plan Plan: D/C TO HEP D/C Information Discharge Comments: HEP d/c sentence: If there are questions or concerns regarding this patient's physical therapy, please feel free to call me at [phone]. Thank you for the referral of this patient. Sincerely, Agusto Rodriguez, PT, Cert MDT, OCS Balance/Gait/Functional tests Balance/Special Test Scores Quick DASH Score: 0 Improvement % Improvement: 75
== END 2023-01-19 19:00 | disposition home or self-care (01) ==
LOC: PT 18:00
PROVIDERS: PCP Family Medicine; Referring Provider Orthopaedic Surgery; Visit Provider Orthopaedic Surgery
DX: M75.41 Impingement syndrome of right shoulder (principal)
CPT/HCPCS: 97110; 97162

== ENCOUNTER → 2023-02-23 | Outpatient (CLI) | payer OTHER, SELFPAY ==
--- NOTE | 2023-02-23 13:00 | MRI_ITS ---
EXAM: MR RIGHT LOWER EXTREMITY WITHOUT INTRAVENOUS CONTRAST CLINICAL INDICATION: OSTEOARTHRITIS TECHNIQUE: Multiplanar and multisequence MR images of the right lower extremity without intravenous contrast. COMPARISON: June 26, 2022 right foot radiography FINDINGS: BONES/JOINTS: Chronic appearing 5 mm osteochondral lesion at the medial talar dome. Signal alteration involving the deltoid ligamentous complex fibers. Plantar calcaneal enthesophyte. Moderate polyarticular tarsometatarsal joint degenerative changes. No fracture. No joint effusion. No hallux valgus deformity. No significant arthritic changes distally. MUSCLES: Unremarkable. No edema or myositis. OTHER SOFT TISSUES: Unremarkable. No solid or cystic mass. OTHER FINDINGS: Moderate posterior subtalar joint effusion. Thickening of the central cord of plantar aponeurosis. MRI/Lower Ext/No Jt/w/o IMPRESSION: Chronic appearing 5 mm osteochondral lesion at the medial talar dome. Moderate polyarticular tarsometatarsal joint degenerative changes. Up to moderate grade sprain injury involving the deep deltoid ligamentous complex. Electronically Signed: Irvin Young MD at 23:39 EST ,
== END | disposition home or self-care (01) ==
PROVIDERS: PCP Family Medicine; Referring Provider Podiatrist; Visit Provider Podiatrist
DX: M19.071 Primary osteoarthritis, right ankle and foot (principal)
CPT/HCPCS: 73718

== ENCOUNTER → 2023-02-24 | Outpatient (CLI) | payer OTHER, SELFPAY ==
--- NOTE | 2023-02-24 15:46 | BI_ITS ---
MAMMOGRAPHY - BILATERAL SCREENING REASON FOR EXAM: Female, 62 years old. Routine annual screening examination. PERTINENT HISTORY: Non-contributory. Remote right excisional breast biopsy. TECHNIQUE: Digital bilateral breast stuart (3D mammographic acquisition) in the CC and MLO projections. 2-D mediolateral oblique (MLO) and craniocaudad (CC) views of both breasts were obtained. CAD: Full Field Digital Mammography with Computer Added Detection was performed. COMPARISON: Comparison is made with prior study February 19, 2022 and December 31, 2020. FINDINGS: Breast Composition: The breasts are almost entirely fatty. There are no dominant masses or suspicious calcifications. Stable small benign-appearing axillary lymph nodes. No other significant abnormalities are identified. There has been no significant change since the prior study. BI/SCRN MAMM (CAD)W/STUART BILAT IMPRESSION: Stable bilateral screening mammogram. Yearly follow-up mammogram recommended. (A) ASSESSMENT CATEGORY: BIRADS Category 2: Benign. A letter regarding these results will be sent to the patient by the facility within 30 days. Approximately 10% of breast cancers are not detected by mammography. A normal mammogram should not delay biopsy of a clinically suspicious abnormality. [id number] Electronically Signed: Gomez Gallagher MD at 8:52 EST ,
== END | disposition home or self-care (01) ==
LOC: OPBI 15:44
PROVIDERS: PCP Family Medicine; Referring Provider Family Medicine; Visit Provider Family Medicine
DX: Z12.31 Encounter for screening mammogram for malignant neoplasm of breast (principal)
CPT/HCPCS: 77063; 77067

== ENCOUNTER → 2023-03-16 | Outpatient (CLI) | payer OTHER, SELFPAY ==
[2023-03-16 17:49] LABS: Absolute Lymphocyte Count 1.61 X10^3/uL (0.83-4.51); Absolute Neutrophil Count 2.7 X10^3/uL (2.0-7.7); Basophil# 0.04 X10^3/uL; Basophil% 0.8 % (0-1); Eosinophil# 0.46 X10^3/uL; Eosinophils% 8.8 % (0-5); Hematocrit 36.2 % (37-47); Hemoglobin 12.4 g/dL (12.0-15.0); Lymphocyte # 1.61 X10^3/ul (0.83-4.51); Lymphocyte % 30.9 % (19-41); Mean Corp Hgb Conc 34.3 g/dL (32-36); Mean Corpuscular Hgb 31.4 pg (27.0-32.0); Mean Corpuscular Volume 91.6 fL (81-99); Mean Platelet Vol. 10.3 fl (6.2-12.0); Monocyte% 7.7 % (0-10); NRBC Flagged by Analyzer 0 % (0-5); Neutrophil # 2.69 X10^3/uL (2.7-7.7); Neutrophil % 51.6 % (47-70); Platelet Count 295 K/mm3 (150-450); RBC Distribution Width CV 13.7 % (11.6-14.6); RBC Distribution Width SD 46.5 fl (35.1-43.9); Red Blood Count 3.95 M/mm3 (4.2-5.4); White Blood Count 5.2 K/mm3 (4.4-11.0)
[2023-03-16 18:34] LABS: ALB/GLOB Ratio 1.1 RATIO (0.9-2.4); AST(SGOT) 24 U/L (15-37); Alanine Aminotransfer ALT/SGPT 22 U/L (13-56); Albumin, Serum 3.7 g/dL (3.2-5.0); Alkaline Phosphatase 61 U/L (45-117); Anion Gap 6 (5-15); BUN 13 mg/dL (7-18); BUN/Creat Ratio 12.5 RATIO (10-20); Chloride 106 mmol/L (98-107); Cholesterol 170 mg/dL (200); Creatinine, Serum 1.04 mg/dL (0.55-1.02); EST Glomerular Filtration Rate 57 mL/min (>60); Est Glom Filt Rate - Afr Amer 69 mL/min (>60); Globulin 3.3 g/dL (2.2-4.2); Glucose 91 mg/dL (74-106); High Density Lipoprotein 69 mg/dL; Potassium 3.6 mmol/L (3.5-5.1); Sodium Level 140 mmol/L (136-145); Triglycerides 101 mg/dL; Very Low Density Lipoprotein 20 mg/dL (5-40)
== END | disposition home or self-care (01) ==
LOC: BFHLAB 14:28
PROVIDERS: PCP Family Medicine; Visit Provider Family Medicine
DX: E78.5 Hyperlipidemia, unspecified (principal); Z51.81 Encounter for therapeutic drug level monitoring
CPT/HCPCS: 36415; 80053; 80061; 85025

== ENCOUNTER → 2023-04-22 | Outpatient (CLI) | payer OTHER, SELFPAY ==
[2023-04-22 12:26] LABS: Absolute Lymphocyte Count 1.52 X10^3/uL (0.83-4.51); Absolute Neutrophil Count 3.7 X10^3/uL (2.0-7.7); Basophil# 0.04 X10^3/uL; Basophil% 0.7 % (0-1); Eosinophil# 0.36 X10^3/uL; Eosinophils% 5.9 % (0-5); Hematocrit 38.4 % (37-47); Hemoglobin 13.1 g/dL (12.0-15.0); Lymphocyte # 1.52 X10^3/ul (0.83-4.51); Lymphocyte % 24.8 % (19-41); Mean Corp Hgb Conc 34.1 g/dL (32-36); Mean Corpuscular Hgb 30.5 pg (27.0-32.0); Mean Corpuscular Volume 89.5 fL (81-99); Mean Platelet Vol. 10.5 fl (6.2-12.0); Monocyte# 0.52 X10^3/uL; Monocyte% 8.5 % (0-10); NRBC Flagged by Analyzer 0 % (0-5); Neutrophil # 3.66 X10^3/uL (2.7-7.7); Neutrophil % 59.8 % (47-70); Platelet Count 305 K/mm3 (150-450); RBC Distribution Width CV 13.8 % (11.6-14.6); RBC Distribution Width SD 45.1 fl (35.1-43.9); Red Blood Count 4.29 M/mm3 (4.2-5.4); White Blood Count 6.1 K/mm3 (4.4-11.0)
[2023-04-22 13:31] LABS: ALB/GLOB Ratio 1.1 RATIO (0.9-2.4); AST(SGOT) 14 U/L (15-37); Alanine Aminotransfer ALT/SGPT 23 U/L (13-56); Albumin, Serum 3.7 g/dL (3.2-5.0); Alkaline Phosphatase 67 U/L (45-117); Anion Gap 4 (5-15); BUN 15 mg/dL (7-18); BUN/Creat Ratio 13.9 RATIO (10-20); Calcium,Total 9.5 mg/dL (8.5-10.1); Chloride 104 mmol/L (98-107); Creatinine, Serum 1.08 mg/dL (0.55-1.02); EST Glomerular Filtration Rate 55 mL/min (>60); Est Glom Filt Rate - Afr Amer 66 mL/min (>60); Globulin 3.3 g/dL (2.2-4.2); Glucose 94 mg/dL (74-106); Potassium 3.5 mmol/L (3.5-5.1); Sodium Level 136 mmol/L (136-145)
== END | disposition home or self-care (01) ==
LOC: BFHLAB 09:53
PROVIDERS: PCP Family Medicine; Visit Provider Family Medicine
DX: Z01.818 Encounter for other preprocedural examination (principal); I10 Essential (primary) hypertension
CPT/HCPCS: 36415; 80053; 85025

== ENCOUNTER 2023-05-22 09:34 | Day surgery (SDC) | payer OTHER, SELFPAY ==
[2023-05-22] VITALS (10 sets, daily range): BP systolic 116–140; BP diastolic 38–70; PULSE 78–94; RESP 16; TEMP 36.4–36.9; O2SAT 89–96; BMI 40.4
[2023-05-22] MEDS: Lactated Ringers 1,000 ML 15 ML IV (10:00)
[2023-05-22] MEDS: Clindamycin 900 MG/50 ML BAG 75 MG IV (11:18)
--- NOTE | 2023-05-22 11:21 | RAD_ITS ---
HISTORY: PAIN. TECHNIQUE: Right ankle 2 spot images. COMPARISON: XR 06/26/2022. FINDINGS: OSSEOUS STRUCTURES: First, second, and third tarsometatarsal fixation hardware noted. FLUOROSCOPY TIME: 2 minutes 16 seconds. RADIATION DOSE: 1.09 mGy. RAD/Ankle 2 Views IMPRESSION: Image guidance for right foot ORIF. Electronically Signed: Katherine Ibrahim MD at 13:14 EST ,
[2023-05-22] MEDS: Bupivacaine Mpf 0.5% 30 ML VIAL (14:59)
--- NOTE | 2023-05-22 15:26 | OP.PCM_ITS ---
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: (5) Ingrowing nail: (6) Pain in right toe(s): Report of Operation Date of Procedure: 05/22/23 Pre-Operative Diagnosis: 1) right ankle pain 2) right osteochondral defect 3) right ankle synovitis 4) right first second third tarsometatarsal joint osteoarthritis with osteophyte formation 5) painful chronically ingrown toenail right second toe Post-Operative Diagnosis: Same Surgery/Procedure Performed:: 1) total matrixectomy right second toe 2) right ankle arthroscopic debridement 3) osteochondral defect repair via subchondral drilling 4) right first second and third tarsometatarsal joint arthrodesis 5) application of splint right lower extremity Description of Surgical Findings:: Patient had end-stage first second third tarsometatarsal joint with dorsal spur formation causing pain with ambulation limiting her ability to walk on a daily basis. Advanced imaging demonstrated and confirmed this. Additionally patient had a chronically ingrown right second toenail and a osteochondral defect confirmed on MRI of the talus medial dome. Surgeon: Kwadwo Benito implementation specialist payroll: None (victor m tran DPM PGYIII) Type of Anesthesia: General Special Medications: 10cc 0.5% marcaine plain Drains: none Estimated Blood Loss (mL): 50 Description of Procedure: Patient brought back the operating placed comfortably in supine position. Patient induced under general anesthesia. Procedure #1: Right second toe total matrixectomy Right second toe was prepped with Betadine paint. Atraumatically the right second toenail was gently removed from the nailbed medial lateral and proximal nail folds. This was excised using hemostats. 3 applications for 30 seconds of phenol to the proximal nail matrix right second toe performed. Flushed with alcohol. Right lower extremity thigh tourniquet applied, well-padded. Right lower extremity was positioned and bump to knock out any external rotation. Right lower extremity scrubbed prepped and draped using typical aseptic fashion. Right lower extremity was elevated exsanguinated tourniquet was inflated to 300 mmHg. Procedure #2/3: Complete ankle arthroscopic debridement, right ankle and subchondral drilling right ankle osteochondral defect Dorsal medial talar dome was palpated using a spinal needle the anterior medial ankle joint was penetrated just medial to the tibialis anterior tendon and medial neurovascular bundle. A small stab incision was made with a #11 blade through epidermis dermis into subcutaneous tissue blunt dissection with hemostats was taken down to the level of the joint capsule which was then penetrated with a trocar and cannula the trocar was then removed and a 4mm scope was inserted into the joint. At this time all checkpoints were identified and there is no to be diffuse chronic synovitis to the anterior medial and lateral aspects of the joint as well as a michele osteochondral defect to the dorsal medial talar dome. The scope was then transposed laterally and a lateral stab incision was made with a #11 blade blunt dissection was taken down with hemostats to the ankle joint capsule which was then penetrated and a shaver was inserted laterally. Complete arthroscopic debridement of all chronic synovitic tissue was performed using the shaver as well as the ankle scope. At this time attention was then taken to the osteochondral defect. A curette was used to curette the soft cartilage edges to create a nice clean cartilaginous edge. Using a pick the osteochondral defect with fenestrated with through the subchondral plate. Fat globules noted. Positive paprika sign noted. Appropriate images taken. Incisional sites were then flushed with copious amounts of normal sterile saline. Incision was closed with horizontal mattress using 4-0 nylon. At this time [employer] via flow was injected to the ankle joint to assist with limited scar tissue for healing. Procedure #4: First second and third tarsometatarsal joint arthrodesis using a dual incisional approach Using fluoroscopic imaging a medial incision was mapped out just dorsal to the first and second tarsometatarsal joints this incision was made through the epidermis dermis into subcutaneous tissue blunt dissection was taken about level of deep fascia down to periosteum care was taken to avoid the dorsalis pedis artery this was actually identified and protected with blunt retraction throughout the course of the case. The first and second tarsometatarsal joints were identified and exposed using atraumatic dissection. The joints were then prepped using a sidecutting MIS bur from [id number] set through the first and second tarsometatarsal joint. Sites were flushed with saline and subchondral drilling was performed with the same MIS bur at this time. Prior to this excision of the dorsal osteophytes to the first second tarsometatarsal joints was performed using a reciprocating rasp. A second incision was made just dorsal to the third tarsometatarsal joint with greater than a 3 cm skin island. This was made with a 15 blade through epidermis dermis into subcutaneous tissue blunt dissection taken down the level of the third tarsometatarsal joint deep fascia and capsule. Any bleeders identified cauterized neurovascular structures identified and protected with blunt retraction. The third metatarsal tarsometatarsal joint was exposed and any dorsal osteophytes were excised using a reciprocating rasp. The third tarsometatarsal joint was denuded of any articular cartilage. Subchondral drilling was performed using the same MIS bur. The first second and third tarsometatarsal joints were then fixated with good apposition and rectus alignment using 3 straight plates using their eccentric hole for compression. Any sites of defects were filled with V toss DBM. Fluoroscopic imaging and clinical examination demonstrated adequate apposition for second tarsal third tarsometatarsal joint with intact hardware. Tourniquet was let down at 2 hours. Hemostasis was noted. All incisional sites were flushed with copious amounts of normal sterile saline. Deep closure was performed with simple interrupted buried 3-0 Vicryl. Subcutaneous closure performed with running interlocking stitch with 3-0 Vicryl. Skin closure performed with simple interrupted 4-0 nylon. All incisional sites were then cleansed and dressed with Betadine Adaptic 4 x 4's Kerlix. Procedure #5 application of splint to right lower extremity Snow compression dressing applied to right lower extremity with AO splint using 5 x 30 plaster splint. This is done with the foot and ankle in a rectus position. Patient transferred to PACU vital signs stable vascular status intact all digits. Patient is to have a popliteal block in PACU. Patient tolerated anesthesia on procedure well apparent satisfactory condition. No complications. Complications none Admit VTE Documentation VTE Present on Admission: Yes VTE Pharm Prophylaxis ordered?: Yes
== END 2023-05-22 17:44 | disposition home or self-care (01) ==
LOC: SDC 09:35 → AC 09:36
PROVIDERS: PCP Family Medicine; Referring Provider Podiatrist; Visit Provider Podiatrist
PROC: (CPT 29999; principal; 2023-05-22 10:45)
DX: M93.271 Osteochondritis dissecans, right ankle and joints of right foot (principal); L60.0 Ingrowing nail; M65.871 Other synovitis and tenosynovitis, right ankle and foot; M19.071 Primary osteoarthritis, right ankle and foot; M77.8 Other enthesopathies, not elsewhere classified
CPT/HCPCS: 28730; 11750; 29891; 29898; 01480; 64445; 73600; 76000; C1713; J7120; J2405

== ENCOUNTER → 2023-08-26 | Outpatient (CLI) | payer OTHER, SELFPAY ==
--- NOTE | 2023-08-26 14:32 | US_ITS ---
STUDY: ULTRASOUND BREAST - LEFT REASON FOR EXAM: Female, 62 years old. Palpable lump left breast. TECHNIQUE: Axial and longitudinal images of the LEFT breast were performed with a high resolution ultrasound transducer. # OF IMAGES: 20 COMPARISON: Comparison is made with prior mammogram done earlier today. FINDINGS: LEFT Breast: The mammographic abnormality corresponds to a 6 mm x 8 mm x 4 mm thick-walled complex cystic structure at the 11:00 position of the breast at 4 cm from the nipple. Biopsy recommended. US/Breast Limited Unilateral IMPRESSION: 6 mm x 8 mm x 4 mm thick-walled complex cystic structure at the 11:00 position of the breast at 4 cm from the nipple. Biopsy recommended. ASSESSMENT CATEGORY: BIRADS Category 4: Suspicious - Biopsy Should Be Considered. A letter regarding these results will be sent to the patient by the facility within 30 days. Electronically Signed: Gomez Gallagher MD at 15:25 EDT ,
--- NOTE | 2023-08-26 14:32 | BI_ITS ---
MAMMOGRAPHY - UNILATERAL DIAGNOSTIC: LEFT BREAST REASON FOR EXAM: Female, 62 years old. Left breast lump. Remote right excisional breast biopsy. PERTINENT HISTORY: Non-contributory. TECHNIQUE: Digital unilateral breast rihcie (3D mammographic acquisition) in the CC and MLO projections. 2-D mediolateral oblique (MLO) and craniocaudad (CC) views of both breasts were obtained. CAD: Full Field Digital Mammography with Computer Added Detection was performed. COMPARISON: Comparison is made with prior study dated February 24, 2023 and February 19, 2022. FINDINGS: Breast Composition: There are scattered areas of fibroglandular density. The palpable lump corresponds to a 8 mm nodular density. Correlation with ultrasound recommended. No other significant abnormalities are identified. BI/DIAG MAMM W/CAD, UNILAT IMPRESSION: The palpable lump corresponds to a faint 8 mm nodular density. Correlation with ultrasound recommended. ASSESSMENT CATEGORY: BIRADS Category 0: Incomplete. Need additional imaging evaluation. A letter regarding these results will be sent to the patient by the facility within 30 days. Approximately 10% of breast cancers are not detected by mammography. A normal mammogram should not delay biopsy of a clinically suspicious abnormality. Electronically Signed: Gomez Gallagher MD at 8:42 EDT ,
== END | disposition home or self-care (01) ==
LOC: OPBI 14:29
PROVIDERS: PCP Family Medicine; Referring Provider Family Medicine; Visit Provider Family Medicine
DX: N60.02 Solitary cyst of left breast (principal)
CPT/HCPCS: 76642; 77061; 77065; G0279

== ENCOUNTER → 2023-09-22 | Outpatient (CLI) | payer OTHER, SELFPAY ==
--- NOTE | 2023-09-22 | BRBX_PTH ---
PATIENT: SARAH LANZA LOC: [facility] U#:[id number] AGE/SX: 62/F ROOM: RE09/22/[address]: Dr. Marc Pascual MD : 1960 BED: DIS: 09/22/2023 SPEC #: [id number] RECD: 09/22/23 10:47 STATUS: HEIDI REQ #: [id number] MORIS: 09/22/23 00:[address]: Marc Pascual DEPT: SURGICAL PATHOLOGY RECD BY: Madison Milalrd ENTERED: 09/22/23 12:05 SP TYPE: BREAST BX OTHR DR: Dr. Sarah Bar DO Tissues: Left breast, NOS Procedures: Surgery Specimen Level IV HEADER OPERATION: Left breast biopsy PRE-OP DIAGNOSIS: Left breast TISSUE SUBMITTED: Left breast Ischemic Time: 1 minute Fixation Time: 9 hours MICROSCOPIC DIAGNOSIS Left breast, core biopsy: Focal minimal intraductal hyperplasia without atypia. Focal fat necrosis, dense fibrosis and old hemorrhage, consistent with previous biopsy site. Negative for malignancy. See comment. / 09/23/2023 COMMENT Correlation with clinical, radiologic findings and appropriate follow up are necessary. MICROSCOPIC DESCRIPTION Slides are reviewed. GROSS DESCRIPTION Received in fixative is one container labeled with the patient's name and designated Left breast. The specimen consists of multiple elongated fragments of abraham-yellow fibroadipose tissue that in aggregate measure 2.0 x 1.0 x 0.1 cm. The specimen is totally submitted in one cassette. / 09/22/2023 TC:5 CPT:60224
== END | disposition home or self-care (01) ==
LOC: LABSPEC 11:19
PROVIDERS: PCP Family Medicine; Referring Provider Surgery; Visit Provider Surgery
DX: N64.9 Disorder of breast, unspecified (principal)
CPT/HCPCS: 88305

== ENCOUNTER 2023-11-05 16:30 | Outpatient (RCR) | payer OTHER, SELFPAY ==
--- NOTE | 2023-06-29 17:31 | HP.PTEVAL_ITS ---
Patient's Visit Information Visit Information Visit Information: CHRISTIAN LANZA is a 62 year old F referred to Physical Therapy by Dr. Kwadwo Benito DPM with a diagnosis of OSTEOARTHRITIS IN LEFT ANKLE AND FOOT. Date of Evaluation: 06/29/23 Physical Therapist: Agusto Rodriguez, PT, Cert MDT, OCS Visit Plan Frequency: 2x /Week Duration: 8-12 WEEKS Plan: S/P ANKLE/FFOT SURGERY 05/22 WBAT WITH CAM BOOT [place] WEAN FROM CRUTCHES PT INTERVENTIONS AROM ANKLE ,STRETCHING G-S ,PROGRESS TO STRENGTHENING EX'S ANKLE ,PROGRESSION OF WB AND GAIT TRAINING WITH TRANSITION TO SHOE PER MD ORDER ,PROPRIOCEPTION AND VASO NEED Subjective Subjective: This 62 y/o female presents to physical therapy with s/p total matrixectomy right second toe right ankle arthroscopic debridement osteochondral defect repair via subchondral drilling right first second and third tarsometatarsal joint arthrodesis on 05/22/23 at [facility] done by DR Benito. Patient was d/c NWB for 4 weeks with scooter kneeling. Patient then went to WBAT with crutches . Seen last Thursday06/22/23 with WBAT wean from crutches. Plan to see 07/07/23.Patient had foot many many years thus seen did MRI .Patient has some paresthesia/tingling. Patient has min pain. Patient has limitations with ADLS and housework tasks and normal gait. Patient goals to RTW and walk normal. 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 Pain Right: Pain Intensity (Out of 10): 1 Objective Objective: POSTURE: mild forward posture SKIN: dry scabby incision EDEMA:timalleor joint line 50.1cm GAIT: ambulates with WBAT with CAM boot with crutches NEURO: mild paresthesia incision AROM: dorsiflexion -10 degrees ,plantar flexion 40 degrees ,inversion 10 degrees ,eversion 5 degrees MMT: ( peak force) anterior tibialis 5.0 ,posterior tibialis 4.9 ,peroneus 3.1 ,plantarflexion 6.8 STAIRS: one step at time with with crutches Balance/Special Test Scores Lower Extremity Functional Score: 30 Goals Goal 1:: I with HEP for ankle and foot Goal Time Frame: 8-12 Weeks Goal 2:: Patient to normalize gait pattern Goal Time Frame: 8-12 Weeks Goal 3:: Patient to demonstrate 75% improvement with function and return to job and housework tasks with limitations Goal Time Frame: 8-12 Weeks Goal 4:: Patient to improve AROM ankle by 10-15 degrees to improve function and gait Goal Time Frame: 8-12 Weeks Goal 5:: Patient to improve peak force right ankle by 15-20 # strength to improve gait Goal Time Frame: 8-12 Weeks Goal 6:: Patient to improve LFES score by 5 -10 points to improve QOL Goal Time Frame: 8-12 Weeks Rehabilitation Potential Physical Therapy Diagnosis: This patient underwent s/p total matrixectomy right second toe right ankle arthroscopic debridement osteochondral defect repair via subchondral drilling right first second and third tarsometatarsal joint arthrodesis 05/22 with gait without boot ,decrease ROM ,proprioception and strength to RTW and normal gait. Rehabilitation Potential: Good Anticipated Interventions Patient/Client Instruction: Educate patient on: Condition and Plan of Care For the Purpose of:: To decrease pain, To increase ROM, To improve muscle pe rformance and motor function, To improve ability to perform ADL's, To increase tolerance to activity/condition/position, To improve ability of physical actions for home/community/work/leisure, To improve gait and locomotor functions, To improve health of tissue, To decrease soft tissue restriction, To increase flexibility/ROM, To improve endurance and To improve balance Therapeutic Exercise to Include: Strength training, Endurance training, Balance training, Flexibilty training, Passive ROM and Active ROM Comment: ANKLE For the Purpose of:: To decrease pain, To increase ROM, To improve muscle performance and motor function, To improve ability to perform ADL's, To increase tolerance to activity/condition/position, To improve ability of physical actions for home/community/work/leisure, To improve gait and locomotor functions, To improve health of tissue, To decrease soft tissue restriction, To increase flexibility/ROM, To improve endurance, To improve balance and To prevent re- injury Cryotherapy (ice pack, ice massage): Yes Thermo therapy (hot pack): Yes Vasopneumatic device: Yes For the Purpose of:: To decrease pain and To increase ROM Text: Thank you for the opportunity to evaluate your patient. For Medicare and Medicare HMO plans, please review the plan of care and approve it. It will need to be FAXED BACK to us at [phone] for Medicare purposes. For Medicare only, by signing this I certify the plan of care. Please let me know if there are questions or concerns regarding this plan of care. Physician Signature: Date:
--- NOTE | 2023-11-05 16:58 | HP.PTDCSUM ---
Discharge Summary D/C summary: It has been my pleasure to treat CHRISTIAN LANZA referred by Dr. Kwadwo Benito DPM, with the diagnosis of OSTEOARTHRITIS IN LEFT ANKLE AND FOOT for a total of 27 visit(s). Discharge Date: 11/05/23 Please see the following information for a summary of their discharge status. Subjective Subjective: Some unsteady with uneven surface Walking normal ,Return to work. Pain Right: Pain Intensity (Out of 10): 1 Overall Improvement % Improvement: 90 Objective Objective/Function: POSTURE :frontal plane mechanics-pes planus SKIN: GOOD EDEMA:mild effusion uses tub gripe GAIT: reciprocal pattern slight antalgic gait right NEURO: mild paresthesia when walking alot AROM: dorsiflexion 5 degrees ,plantar flexion 60 degrees ,inversion 40 degrees ,eversion 10 degrees MMT: ( peak force) anterior tibialis 32.6. ,posterior tibialis 23.4 ,peroneus 32.6 ,plantarflexion 42.8 STAIRS: one step at time with rail proprioception: 15SEC Goals Goal 1:: I with HEP for ankle and foot Goal 2:: Patient to normalize gait pattern Goal 3:: Patient to demonstrate 75% improvement with function and return to job and housework tasks with limitations Goal 4:: Patient to improve AROM ankle by 10-15 degrees to improve function and gait Goal 5:: Patient to improve peak force right ankle by 15-20 # strength to improve gait Goal 6:: Patient to improve LFES score by 5 -10 points to improve QOL Plan Plan: D/C D/C Information Discharge Comments: HEP d/c sentence: If there are questions or concerns regarding this patient's physical therapy, please feel free to call me at [phone]. Thank you for the referral of this patient. Sincerely, Agusto Rodriguez, PT, Cert MDT, OCS Balance/Gait/Functional tests Balance/Special Test Scores Lower Extremity Functional Score: 58 Improvement % Improvement: 90
== END 2023-11-05 19:00 | disposition home or self-care (01) ==
LOC: PT 16:30
PROVIDERS: PCP Family Medicine; Referring Provider Podiatrist; Visit Provider Podiatrist
DX: M19.072 Primary osteoarthritis, left ankle and foot (principal)
CPT/HCPCS: 97110; 97162; 97530

== ENCOUNTER → 2024-03-01 | Outpatient (CLI) | payer OTHER, SELFPAY ==
--- NOTE | 2024-03-01 12:57 | US_ITS ---
STUDY: ULTRASOUND BREAST - LEFT REASON FOR EXAM: Female, 63 years old. History of left breast cyst aspiration. TECHNIQUE: Axial and longitudinal images of the LEFT breast were performed with a high resolution ultrasound transducer. # OF IMAGES: 5 COMPARISON: Comparison is made with prior sonogram of the left breast dated August 26, 2023. FINDINGS: LEFT Breast: The medial upper aspect of the left breast was examined with ultrasound. No abnormality is seen at this time. A tissue clip marker is seen at the 11:00 position of the breast at 4 cm from the nipple. US/Breast Limited Unilateral IMPRESSION: Tissue clip marker is seen at the 11:00 position of the breast at 4 cm from nipple. No abnormality is seen at this time. ASSESSMENT CATEGORY: BIRADS Category 2: Benign. A letter regarding these results will be sent to the patient by the facility within 30 days. Electronically Signed: Gomez Gallagher MD at 14:06 EST ,
== END | disposition home or self-care (01) ==
LOC: OPUS 12:57
PROVIDERS: PCP Family Medicine; Referring Provider Surgery; Visit Provider Surgery
DX: R92.8 Other abnormal and inconclusive findings on diagnostic imaging of breast (principal)
CPT/HCPCS: 76642

== ENCOUNTER → 2024-03-14 | Outpatient (CLI) | payer OTHER, SELFPAY ==
--- NOTE | 2024-03-14 15:56 | BI_ITS ---
MAMMOGRAPHY - BILATERAL SCREENING REASON FOR EXAM: Female, 63 years old. Routine annual screening examination. PERTINENT HISTORY: Non-contributory. History of prior left ultrasound-guided breast biopsy. TECHNIQUE: Digital bilateral breast stuart (3D mammographic acquisition) in the CC and MLO projections. 2-D mediolateral oblique (MLO) and craniocaudad (CC) views of both breasts were obtained. CAD: Full Field Digital Mammography with Computer Added Detection was performed. COMPARISON: Comparison is made with prior study dated February 16, 2023 and February 19, 2022. FINDINGS: Breast Composition: The breasts are almost entirely fatty. There are no dominant masses or suspicious calcifications. A tissue clip marker is seen in the superior medial anterior aspect of the left breast adjacent to the left areola. No nodule is seen at this time. No other significant abnormalities are identified. BI/SCRN MAMM (CAD)W/STUART BILAT IMPRESSION: Stable bilateral screening mammogram. Yearly follow-up mammogram recommended. (A) ASSESSMENT CATEGORY: BIRADS Category 2: Benign. A letter regarding these results will be sent to the patient by the facility within 30 days. Approximately 10% of breast cancers are not detected by mammography. A normal mammogram should not delay biopsy of a clinically suspicious abnormality. [id number] Electronically Signed: Gomez Gallagher MD at 9:26 EST ,
== END | disposition home or self-care (01) ==
LOC: OPBI 15:55
PROVIDERS: PCP Family Medicine; Referring Provider Family Medicine; Visit Provider Family Medicine
DX: Z12.31 Encounter for screening mammogram for malignant neoplasm of breast (principal)
CPT/HCPCS: 77063; 77067

== ENCOUNTER → 2024-03-21 | Outpatient (CLI) | payer OTHER, SELFPAY ==
[2024-03-21 12:13] LABS: Absolute Lymphocyte Count 1.95 X10^3/uL (0.83-4.51); Absolute Neutrophil Count 4.2 X10^3/uL (2.0-7.7); Basophil# 0.06 X10^3/uL; Basophil% 0.7 % (0-1); Eosinophils% 14.8 % (0-5); Hematocrit 36.5 % (37-47); Lymphocyte # 1.95 X10^3/ul (0.83-4.51); Lymphocyte % 24.1 % (19-41); Mean Corp Hgb Conc 35.6 g/dL (32-36); Mean Corpuscular Hgb 30.7 pg (27.0-32.0); Mean Corpuscular Volume 86.3 fL (81-99); Mean Platelet Vol. 10.6 fl (6.2-12.0); Monocyte# 0.67 X10^3/uL; Monocyte% 8.3 % (0-10); NRBC Flagged by Analyzer 0 % (0-5); Neutrophil % 51.9 % (47-70); Platelet Count 274 K/mm3 (150-450); RBC Distribution Width CV 13.2 % (11.6-14.6); RBC Distribution Width SD 41.5 fl (35.1-43.9); Red Blood Count 4.23 M/mm3 (4.2-5.4); White Blood Count 8.1 K/mm3 (4.4-11.0)
[2024-03-21 12:38] LABS: ALB/GLOB Ratio 1.1 RATIO (0.9-2.4); AST(SGOT) 22 U/L (15-37); Alanine Aminotransfer ALT/SGPT 28 U/L (13-56); Albumin, Serum 3.6 g/dL (3.2-5.0); Alkaline Phosphatase 61 U/L (45-117); Anion Gap 6 (5-15); BUN 12 mg/dL (7-18); BUN/Creat Ratio 11.1 RATIO (10-20); Calcium,Total 9.7 mg/dL (8.5-10.1); Chloride 104 mmol/L (98-107); Cholesterol 163 mg/dL (200); Creatinine, Serum 1.08 mg/dL (0.55-1.02); EST Glomerular Filtration Rate 55 mL/min (>60); Est Glom Filt Rate - Afr Amer 66 mL/min (>60); Globulin 3.4 g/dL (2.2-4.2); Glucose 105 mg/dL (74-106); High Density Lipoprotein 71 mg/dL; Potassium 3.3 mmol/L (3.5-5.1); Sodium Level 136 mmol/L (136-145); Triglycerides 106 mg/dL; Very Low Density Lipoprotein 21 mg/dL (5-40)
== END | disposition home or self-care (01) ==
PROVIDERS: PCP Family Medicine; Referring Provider Family Medicine; Visit Provider Family Medicine
DX: E78.5 Hyperlipidemia, unspecified (principal); Z51.81 Encounter for therapeutic drug level monitoring
CPT/HCPCS: 36415; 80053; 80061; 85025

== ENCOUNTER → 2024-11-11 | Outpatient (CLI) | payer OTHER, SELFPAY ==
[2024-11-11 17:40] LABS: Hematocrit 34.6 % (37-47); Hemoglobin 12.0 g/dL (12.0-15.0); Immature Granulocytes Count 0.020 X10^3/uL (0.0-0.0); Mean Corp Hgb Conc 34.7 g/dL (32-36); Mean Corpuscular Volume 89.4 fL (81-99); Mean Platelet Vol. 11.2 fl (6.2-12.0); NRBC Flagged by Analyzer 0 % (0-5); Platelet Count 265 K/mm3 (150-450); RBC Distribution Width CV 14.6 % (11.6-14.6); RBC Distribution Width SD 47.8 fl (35.1-43.9); Red Blood Count 3.87 M/mm3 (4.2-5.4); White Blood Count 6.7 K/mm3 (4.4-11.0)
== END | disposition home or self-care (01) ==
LOC: BFHLAB 14:23
PROVIDERS: PCP Family Medicine; Referring Provider Family Medicine; Visit Provider Family Medicine
DX: R59.0 Localized enlarged lymph nodes (principal)
CPT/HCPCS: 36415; 85025; 86617

== ENCOUNTER → 2024-12-05 | Outpatient (CLI) | payer OTHER, SELFPAY ==
--- NOTE | 2024-12-05 12:57 | US_ITS ---
PROCEDURE: HEAD/NECK SOFT TISSUE 12/05/2024 REASON FOR EXAM: L POSTERIOR CERVICAL AND SUBOCCIPITAL ADENOPATHY TECHNIQUE: Procedure Code: USH/N SOFT Modality: US Procedure: HEAD/NECK SOFT TISSUE COMPARISON: None FINDINGS: There are 3 small benign-appearing lymph nodes corresponding to the palpable lumps along the posterior left side of the neck. The largest lymph node measures 1 cm x 0.7 cm 0.3 cm. US/Head/Neck Soft Tissue IMPRESSION: Findings suggestive of 3 small benign-appearing lymph nodes corresponding to th e palpable lumps along the posterior left side of the neck. Reading Location: [id number]
== END | disposition home or self-care (01) ==
PROVIDERS: PCP Family Medicine; Referring Provider Family Medicine; Visit Provider Family Medicine
DX: R59.0 Localized enlarged lymph nodes (principal)
CPT/HCPCS: 76536